=== PATIENT | male | born 1950 | race Caucasian/White ===

== ENCOUNTER 2021-02-24 01:43 | Emergency (ER) | payer BC, MEDICAID ==
[~2021-02-24] VITALS: Ht 177.8 cm; Wt 68.0 kg
[2021-02-24 01:59] VITALS: BP 136/70
[2021-02-24] MEDS ORDERED: IBUP-1957 PO (02:12)
[2021-02-24] MEDS ORDERED: IBUPROFEN 400 MG TABLET PO ONE (02:30)
== END 2021-02-24 02:34 | disposition home or self-care (01) ==
LOC: ER 01:49
DX: M54.41 Lumbago with sciatica, right side (principal); G89.29 Other chronic pain; I10 Essential (primary) hypertension; F20.9 Schizophrenia, unspecified

== ENCOUNTER 2021-03-28 20:48 | Emergency (ER) | payer BC, OTHER ==
[~2021-03-28] VITALS: Ht 177.8 cm; Wt 68.0 kg
[~2021-03-28 20:48] MED LIST: IBUP-1957 PO
--- NOTE | 2021-03-28 20:50 | NUR ---
PT AAOX4. BIBEMS FROM A [facility] C/O PALPITATION RESOLVED UPON ARRIVAL TO ER. PLACED IN BED 9 ON MONITOR AND PULSE OX. AWAITING ER MD FOR EVAL AND ORDERS.
[2021-03-28 21:20] LABS: BASOPHILS # (AUTO) 0.1 K/uL (0.0-0.2); BASOPHILS % (AUTO) 0.7 % (0.0-2.0); HEMATOCRIT 37 % (39-51); HEMOGLOBIN 12.4 g/dL (13.5-17.5); LYMPHOCYTES # (AUTO) 1.8 K/uL (0.8-4.8); LYMPHOCYTES % (AUTO) 16.2 % (20.0-44.0); MEAN CORPUSCULAR HGB CONC 34 g/dl (31.0-36.0); MEAN CORPUSCULAR VOLUME 96 fL (80-96); MONOCYTES # (AUTO) 0.8 K/uL (0.1-1.30); MONOCYTES % (AUTO) 7.4 % (2.0-12.0); NEUTROPHILS # (AUTO) 8.4 K/uL (1.8-8.9); NEUTROPHILS % (AUTO) 74.7 % (43.0-81.0); PLATELET COUNT (AUTO) 214 K/uL (150-450); RED BLOOD CELL COUNT(AUTO) 3.84 MIL/uL (4.5-6.0); WHITE BLOOD COUNT (AUTO) 11.2 K/uL (4.3-11.0)
[2021-03-28 21:28] LABS: CALCIUM, SERUM 8.9 mg/dL (8.5-10.1); CARBON DIOXIDE 23 mmol/L (21-32); CHLORIDE 97 mmol/L (98-107); GLUCOSE 88 mg/dL (74-106); POTASSIUM 4.2 mmol/L (3.5-5.1); SODIUM SERUM 133 mmol/L (136-145); UREA NITROGEN, BLOOD 15 mg/dL (7-18)
[2021-03-28 21:44] LABS: ALANINE AMINOTRANSFERASE 15 U/L (12-78); ALBUMIN 3.7 g/dL (3.4-5.0); ALKALINE PHOSPHATASE 99 U/L (46-116); ASPARTATE AMINOTRANSFERASE 22 U/L (15-37); BILIRUBIN,DIRECT 0.2 mg/dL (0.0-0.2); BILIRUBIN,TOTAL 0.6 mg/dL (0.2-1.0); TOTAL PROTEIN, SERUM 7.6 g/dL (6.4-8.2)
--- NOTE | 2021-03-28 22:43 | NUR ---
IV removed. Catheter intact and site benign. Pressure and 4x4 applied to site. No bleeding noted. Patient discharged to home in stable condition. Written and verbal after care instructions given. Patient verbalizes understanding of instruction.
[2021-03-28 23:16] VITALS: BP 137/72
== END 2021-03-28 23:17 | disposition home or self-care (01) ==
LOC: ER 22:54
DX: R00.2 Palpitations (principal); I25.2 Old myocardial infarction; F20.9 Schizophrenia, unspecified; F32.9 Major depressive disorder, single episode, unspecified
CPT/HCPCS: 36415; 71045-TC; 80048-TC; 80076-TC; 84484-TC; 85025-TC